=== PATIENT | male | born 1945 | race Caucasian/White ===

== ENCOUNTER 2017-02-20 17:47 | Emergency (ER) | payer MEDICARE, OTHER ==
[2017-02-20] MEDS ORDERED: SODIUM CHLORIDE 0.9% 1,000 ML IV STA (18:03)
[2017-02-20 18:48] LABS: Basophils % (A) 0 %; Eosinophils % (A) 0 %; HCT 52.3 % (39.0-53.0); HGB 18.1 gm/dL (13.0-17.5); Lymphocytes # (A) 0.9 k/uL (1.0-4.8); Lymphocytes % (A) 7 %; MCH 30.3 pg (25.0-35.0); MCHC 34.5 g/dL (31.0-37.0); MCV 87.7 fL (80.0-100.0); Mean Platelet Volume 8.1; Monocytes # (A) 0.5 k/uL (0-1.0); Monocytes % (A) 4 %; Neutrophils # (A) 10.9 k/uL (1.3-7.7); Neutrophils % (A) 87 %; Platelet Count 224 k/uL (150-450); RBC 5.97 m/uL (4.30-5.90); RDW 13.9 % (11.5-15.5); WBC 12.5 k/uL (3.8-10.6)
[2017-02-20 18:50] LABS: Appearance,Urine Clear (Clear); Bilirubin,Urine Negative (Negative); Blood,Urine Small (Negative); Color,Urine Yellow; Glucose,Urine (UA) 3+ (Negative); Ketones,Urine 1+ (Negative); Leukocyte Esterase,Urine Negative (Negative); Mucus,Urine Occasional /hpf; Nitrite,Urine Negative (Negative); Protein,Urine 1+ (Negative); RBC,Urine 5 /hpf (0-5); Specific Gravity,Urine 1.016 (1.001-1.035); Urobilinogen,Urine <2.0 mg/dL (<2.0); WBC,Urine 1 /hpf (0-5)
[2017-02-20 18:52] LABS: INR 3.6 (<1.2); Partial Thromboplastin Time 34.6 sec (22.0-30.0)
[2017-02-20 18:56] LABS: ALT 36 U/L (21-72); AST 31 U/L (17-59); Albumin 4.6 g/dL (3.5-5.0); Alkaline Phosphatase 92 U/L (38-126); Anion Gap 12 mmol/L; Blood Urea Nitrogen 14 mg/dL (9-20); Calcium 9.3 mg/dL (8.4-10.2); Carbon Dioxide 24 mmol/L (22-30); Chloride 97 mmol/L (98-107); Glucose 125 mg/dL (74-99); Magnesium 1.8 mg/dL (1.6-2.3); Potassium 4.1 mmol/L (3.5-5.1); Sodium 133 mmol/L (137-145); Total Bilirubin 1.1 mg/dL (0.2-1.3); Total Protein 7.2 g/dL (6.3-8.2)
--- NOTE | 2017-02-20 19:16 | CT ---
EXAMINATION: CT brain wo con DATE AND TIME: 02/20/2017 7:01 PM ORDERING PROVIDER: Eliel Jacob DO CLINICAL INDICATION: weakness TECHNIQUE: Standard departmental protocol. COMPARISON: None. DESCRIPTION: The calvarium is intact. There is no intracranial hemorrhage. There is no mass or mass e ffect. There is no definite new attenuation defect. Remainder of the intra-axial and extra-axial comp artment examination is unremarkable. The paranasal sinuses, middle ear cavities, and mastoid sinus ai r cells are clear. The orbits are intact. IMPRESSION: NO ACUTE PROCESS.
--- NOTE | 2017-02-20 19:16 | ED ---
General Adult HPI - General Chief complaint: Dizziness Stated complaint: DIZZINESS Time Seen by Provider: 02/20/17 18:03 Source: patient, RN notes reviewed, old records reviewed Mode of arrival: wheelchair Limitations: no limitations - History of Present Illness Initial comments: This is a 71-year-old male to the ER for evaluation today. Patient's presenting for evaluation regarding to dizziness. Dizziness began last night while watching TV, he feels like his disequilibrium. Patient has history of atrial fibrillation history of breast prostate cancer. Patient denies chest pain headache shortness of breath or abdominal pain. Patient also has some dizziness when changing position or walking. Lowmichele states he does not feel like he is going to lose his balance and fall - Related Data Home Medications Medication Instructions Recorded Confirmed Losartan Potassium [Cozaar] 12.5 mg PO DAILY@139902/20/17 02/20/17 Metoprolol Succinate (ER) [Toprol 25 mg PO DAILY 02/20/17 02/20/17 Xl] Warfarin [Coumadin] 5 mg PO MOTUWETHFRSA@139902/20/17 02/20/17 Warfarin [Coumadin] 10 mg PO RAINES@139902/20/17 02/20/17 Allergies Allergy/AdvReac Type Severity Reaction Status Date / Time No Known Allergies Allergy Verified 02/20/17 18:43 Review of Systems ROS Statement: Those systems with pertinent positive or pertinent negative responses have been documented in the HPI. ROS Other: All systems not noted in ROS Statement are negative. Past Medical History Past Medical History: Atrial Fibrillation, Cancer, Prostate Disorder Additional Past Medical History / Comment(s): prostate cancer History of Any Multi-Drug Resistant Organisms: None Reported Additional Past Surgical History / Comment(s): cataracts Past Psychological History: No Psychological Hx Reported Smoking Status: Never smoker Past Alcohol Use History: Occasional Past Drug Use History: None Reported General Exam - General Exam Comments Initial Comments: No ataxia, or cerebellar testing finger-nose and heel umanzor are negative Limitations: no limitations General appearance: alert, in no apparent distress Head exam: Present: atraumatic, normocephalic, normal inspection Eye exam: Present: normal appearance, PERRL, EOMI, nystagmus (Left). Absent: scleral icterus, conjunctival injection, periorbital swelling ENT exam: Present: normal exam, mucous membranes moist Neck exam: Present: normal inspection. Absent: tenderness, meningismus, lymphadenopathy Respiratory exam: Present: normal lung sounds bilaterally. Absent: respiratory distress, wheezes, rales, rhonchi, stridor Cardiovascular Exam: Present: regular rate, normal rhythm, normal heart sounds. Absent: systolic murmur, diastolic murmur, rubs, gallop, clicks GI/Abdominal exam: Present: soft, normal bowel sounds. Absent: distended, tenderness, guarding, rebound, rigid Extremities exam: Present: normal inspection, full ROM, normal capillary refill. Absent: tenderness, pedal edema, joint swelling, calf tenderness Back exam: Present: normal inspection Neurological exam: Present: alert, oriented X3, CN II-XII intact Psychiatric exam: Present: normal affect, normal mood Skin exam: Present: warm, dry, intact, normal color. Absent: rash Course Vital Signs 02/20/17 17:53 Temperature 98.1 F Pulse Rate 101 H Respiratory 20 Rate Blood Pressure 172/104 O2 Sat by Pulse 99 Oximetry - Reevaluation(s) Reevaluation #1: 02/20/17 19:27 Patient able to stand up, ambulate without difficulty EKG Findings - EKG Comments: EKG Findings:: EKG shows A. fib rate of 111, QRS 86, QTc 451 Medical Decision Making - Medical Decision Making 71 male the ER for evaluation of dizziness. Occasional, resolved. Able to ambulate CT brain is negative patient can be discharged home - Lab Data Result diagrams: 02/20/17 18:25 02/20/17 18:25 Lab Results 02/20/17 02/20/17 02/20/17 Range/Units 18:25 18:25 18:25 WBC 12.5 H (3.8-10.6) k/uL RBC 5.97 H (4.30-5.90) m/uL Hgb 18.1 H (13.0-17.5) gm/dL Hct 52.3 (39.0-53.0) % MCV 87.7 (80.0-100.0) fL MCH 30.3 (25.0-35.0) pg MCHC 34.5 (31.0-37.0) g/dL RDW 13.9 (11.5-15.5) % Plt Count 224 (150-450) k/uL Neutrophils % 87 % Lymphocytes % 7 % Monocytes % 4 % Eosinophils % 0 % Basophils % 0 % Neutrophils # 10.9 H (1.3-7.7) k/uL Lymphocytes # 0.9 L (1.0-4.8) k/uL Monocytes # 0.5 (0-1.0) k/uL Eosinophils # 0.0 (0-0.7) k/uL Basophils # 0.0 (0-0.2) k/uL PT (9.0-12.0) sec INR (<1.2) APTT (22.0-30.0) sec Sodium 133 L (137-145) mmol/L Potassium 4.1 (3.5-5.1) mmol/L Chloride 97 L (98-107) mmol/L Carbon Dioxide 24 (22-30) mmol/L Anion Gap 12 mmol/L BUN 14 (9-20) mg/dL Creatinine 0.78 (0.66-1.25) mg/dL Est GFR (MDRD) Af Amer >60 (>60 ml/min/1.73 sqM) Est GFR (MDRD) Non-Af >60 (>60 ml/min/1.73 sqM) Glucose 125 H (74-99) mg/dL Calcium 9.3 (8.4-10.2) mg/dL Phosphorus 3.0 (2.5-4.5) mg/dL Magnesium 1.8 (1.6-2.3) mg/dL Total Bilirubin 1.1 (0.2-1.3) mg/dL AST 31 (17-59) U/L ALT 36 (21-72) U/L Alkaline Phosphatase 92 (38-126) U/L Total Creatine Kinase 107 (55-170) U/L CK-MB (CK-2) 2.7 H* (0.0-2.4) ng/mL CK-MB (CK-2) Rel Index 2.5 Troponin I 0.017 (0.000-0.034) ng/mL Total Protein 7.2 (6.3-8.2) g/dL Albumin 4.6 (3.5-5.0) g/dL Urine Color Urine Appearance (Clear) Urine pH (5.0-8.0) Ur Specific [place] (1.001-1.035) Urine Protein (Negative) Urine Glucose (UA) (Negative) Urine Ketones (Negative) Urine Blood (Negative) Urine Nitrite (Negative) Urine Bilirubin (Negative) Urine Urobilinogen (<2.0) mg/dL Ur Leukocyte Esterase (Negative) Urine RBC (0-5) /hpf Urine WBC (0-5) /hpf Urine Mucus (None) /hpf 02/20/17 02/20/17 Range/Units 18:25 18:25 WBC (3.8-10.6) k/uL RBC (4.30-5.90) m/uL Hgb (13.0-17.5) gm/dL Hct (39.0-53.0) % MCV (80.0-100.0) fL MCH (25.0-35.0) pg MCHC (31.0-37.0) g/dL RDW (11.5-15.5) % Plt Count (150-450) k/uL Neutrophils % % Lymphocytes % % Monocytes % % Eosinophils % % Basophils % % Neutrophils # (1.3-7.7) k/uL Lymphocytes # (1.0-4.8) k/uL Monocytes # (0-1.0) k/uL Eosinophils # (0-0.7) k/uL Basophils # (0-0.2) k/uL PT 32.0 H (9.0-12.0) sec INR 3.6 H (<1.2) APTT 34.6 H (22.0-30.0) sec Sodium (137-145) mmol/L Potassium (3.5-5.1) mmol/L Chloride (98-107) mmol/L Carbon Dioxide (22-30) mmol/L Anion Gap mmol/L BUN (9-20) mg/dL Creatinine (0.66-1.25) mg/dL Est GFR (MDRD) Af Amer (>60 ml/min/1.73 sqM) Est GFR (MDRD) Non-Af (>60 ml/min/1.73 sqM) Glucose (74-99) mg/dL Calcium (8.4-10.2) mg/dL Phosphorus (2.5-4.5) mg/dL Magnesium (1.6-2.3) mg/dL Total Bilirubin (0.2-1.3) mg/dL AST (17-59) U/L ALT (21-72) U/L Alkaline Phosphatase (38-126) U/L Total Creatine Kinase (55-170) U/L CK-MB (CK-2) (0.0-2.4) ng/mL CK-MB (CK-2) Rel Index Troponin I (0.000-0.034) ng/mL Total Protein (6.3-8.2) g/dL Albumin (3.5-5.0) g/dL Urine Color Yellow Urine Appearance Clear (Clear) Urine pH 6.0 (5.0-8.0) Ur Specific [place] 1.016 (1.001-1.035) Urine Protein 1+ H (Negative) Urine Glucose (UA) 3+ H (Negative) Urine Ketones 1+ H (Negative) Urine Blood Small H (Negative) Urine Nitrite Negative (Negative) Urine Bilirubin Negative (Negative) Urine Urobilinogen <2.0 (<2.0) mg/dL Ur Leukocyte Esterase Negative (Negative) Urine RBC 5 (0-5) /hpf Urine WBC 1 (0-5) /hpf Urine Mucus Occasional H (None) /hpf - Radiology Data Radiology results: report reviewed (CT brain is negative for acute disease), image reviewed Disposition Clinical Impression: Benign paroxysmal positional vertigo Disposition: HOME SELF-CARE Condition: Good Instructions: Vertigo (ED) Referrals: Kyara Canada MD [Primary Care Provider] - 1-2 days
[2017-02-20 19:19] LABS: Troponin I 0.017 ng/mL (0.000-0.034)
[2017-02-20 19:20] LABS: Creatine Kinase MB 2.7 ng/mL (0.0-2.4)
[2017-02-20 19:40] VITALS: BP 174/98; PULSE 94; RESP 18; TEMP 98.3
== END 2017-02-20 19:39 | disposition home or self-care (01) ==
LOC: EC 17:47
DX: H81.10 Benign paroxysmal vertigo, unspecified ear (principal); I48.91 Unspecified atrial fibrillation; Z85.46 Personal history of malignant neoplasm of prostate; Z79.899 Other long term (current) drug therapy
CPT/HCPCS: 36415; 70450; 80053; 81001; 82550; 82553; 83735; 84100; 84484; 85025; 85610; 85730; 87086; 93005; 96360; 99284

== ENCOUNTER → 2018-05-08 | Outpatient (CLI) | payer MEDICARE, OTHER ==
--- NOTE | 2018-05-08 14:52 | CONS ---
CONSULTATION DATE OF SERVICE: 05/08/2018. A 73-year-old gentleman has been evaluated in Sleep Center for possible obstructive sleep apnea-hypopnea syndrome. HISTORY OF PRESENT ILLNESS/SLEEP-WAKE EVALUATION: Patient's usual sleep schedule from 8:30 - 9 p.m. until 4 am. Usually no problems with falling asleep. No TV in bedroom. He sleeps by himself on the side position, usually and wakes up from sleep around 4 times with nocturia. He may take naps at 3 to 4 p,m. [place] Sleepiness Scale is 4. No history of hypnagogic hallucinations, sleep paralysis or cataplexy. PAST MEDICAL HISTORY: Positive for atrial fibrillation, hypertension, prostate CA, and BPH. PAST SURGICAL HISTORY: Left eye cataract surgery. SOCIAL HISTORY: Negative for smoking, alcohol consumption occasional. MEDICATIONS: Lopressor, Coumadin, losartan. FAMILY HISTORY: Heart problems, stroke. REVIEW OF SYSTEMS: Multiple awakenings from sleep, naps afternoon. PHYSICAL EXAM: gentleman without distress. BP 148/94, HR 90, RR 16, height 5 foot 7-1/2 inches, weight 191 pounds. Body mass index 29.4, temperature 98.4, oxygen saturation at room air 98%. OROPHARYNX: Extremely low position of soft palate. Mallampati IV. Neck 16 inches in circumference. HEART: S1, S2, irregular. Neck Supple, no JVD. Thyroid is not palpable. LUNGS Clear to percussion and to auscultation. Good air exchange. No wheezing or rhonchi. ABDOMEN Soft and nontender. Bowel sounds are present. No organomegaly appreciated. EXTREMITIES No clubbing or cyanosis. TRANSPORTATION WORKER Awake, alert, and oriented X3. Cranial nerves 2 to 7 intact. There is no fasciculation or atrophy. noted. No focal deficits observed. IMPRESSION: 1. Multiple awakenings from sleep with nocturia, extremely low position of soft palate, wide neck, obstructive sleep apnea-hypopnea syndrome. 2. Overweight, borderline to obesity, body mass index 29.4. 3. Atrial fibrillation. 4. Hypertension. 5. Prostate CA. 6. History of benign prostatic hypertrophy. 7. Status post surgery for cataracts on the left eye. PLAN: 1. Polysomnography for evaluation of patient's breathing during sleep. 2. CPAP/BiPAP titration if sleep study confirms obstructive sleep apnea-hypopnea syndrome. 3. Preferable position during sleep on the side. 4. No driving if patient feels any sleepiness. 5. I will see patient for follow up visit to explain results of testing and following plan. Thank you very much for referring this patient for consultation. Sincerely, Dwain Gibbons MD, PhD, FAASM Diplomat of [place] [employer] [place] [employer] [facility] Dwain Gibbons MD, PhD, FAASM Diplomat of [place] [employer] [place] [employer] [facility] MMODL / IJN: [id number] /
== END | disposition home or self-care (01) ==
LOC: SLEEP 13:18
PROVIDERS: ATTEND Internal Medicine
DX: G47.33 Obstructive sleep apnea (adult) (pediatric) (principal); E66.3 Overweight; I48.91 Unspecified atrial fibrillation; I10 Essential (primary) hypertension; C61 Malignant neoplasm of prostate; Z87.448 Personal history of other diseases of urinary system; Z68.29 Body mass index [BMI] 29.0-29.9, adult; Z98.42 Cataract extraction status, left eye; Z79.01 Long term (current) use of anticoagulants; Z79.899 Other long term (current) drug therapy
CPT/HCPCS: 99211

== ENCOUNTER → 2018-08-07 | Outpatient (CLI) | payer MEDICARE, OTHER ==
--- NOTE | 2018-08-07 11:32 | SFUN ---
SLEEP CENTER FOLLOW UP NOTE DATE OF SERVICE: 08/07/2018 This 73-year-old gentleman has been followed in sleep center for treatment of obstructive sleep apnea-hypopnea syndrome. Recently patient had diagnostic polysomnogram and CPAP titration and I discussed results of sleep studies with patient in detail. Patient was diagnosed with obstructive sleep apnea and subsequently received a CPAP unit, started to use it and he was able to use it every night for the whole night. There is a possibility that small connector between mask and tube was lost and could be the reason for leak from the system according to patient opinion. [place] Sleepiness Scale today is 2, which is totally normal. I checked patient's CPAP unit, CPAP pressure is 9 cm of water. Usage is 30 out of 30 nights more than 4 hours with average usage is 7.1 hours. Leak is 35 L/minute. Apnea- hypopnea index only 0.4, which is absolutely perfect. MEDICATIONS: Lopressor, Coumadin, losartan. PHYSICAL EXAMINATION: During physical exam, patient in no distress. VITAL SIGNS: BP 157/101 on right arm and 159/102 on the left, HR 78, RR 16, weight 192, temp 98.1, oxygen saturation at room air 98%. HEENT: PERRLA, EOMI. Oropharynx low position of soft palate NECK: Supple, no JVD. Thyroid is not palpable. LUNGS: Clear to percussion and to auscultation. Good air exchange. No wheezing or rhonchi. HEART: S1, S2 regular. No murmurs, gallops, or rubs. ABDOMEN: Soft and nontender. Bowel sounds are present. No organomegaly appreciated. EXTREMITIES: No clubbing or cyanosis. COUNTY DIRECTOR WELFARE: Awake, alert, and oriented X3. Cranial nerves 2 to 7 intact. There is no fasciculation or atrophy. noted. No focal deficits observed. IMPRESSION: 1. Obstructive sleep apnea-hypopnea syndrome; apnea-hypopnea index 10.6. Patient demonstrated 100% compliance with treatment. Full normalization of respiration on CPAP, benefitting from treatment. 2. History of atrial fibrillation. 3. Hypertension. 4. History of prostate cancer. 5. History of benign prostatic hypertrophy. 6. Status post surgery for cataract on the left eye. PLAN: 1. Patient will continue to use CPAP equipment every night for the whole night. 2. Prescription for replacement of connector. 3. Watching weight. 4. Sleep hygiene with regular time in bed for at least 8 hours. 5. No driving if feeling any sleepiness. 6. We will maintain all necessary prescriptions for CPAP supplies including mask, tube, filters. Thank you very much for allowing me to participate in management of your patient. Sincerely, Dwain Gibbons MD, PhD, FAASM Diplomat of [place] [employer] [place] [employer] Smoking Tobacco Packing Machine Hand [facility] [place] MMODL / YEN: [id number] /
== END | disposition home or self-care (01) ==
LOC: SLEEP 09:44
PROVIDERS: ATTEND Internal Medicine
DX: G47.33 Obstructive sleep apnea (adult) (pediatric) (principal); I10 Essential (primary) hypertension; Z86.79 Personal history of other diseases of the circulatory system; Z85.46 Personal history of malignant neoplasm of prostate; Z87.438 Personal history of other diseases of male genital organs; Z99.89 Dependence on other enabling machines and devices; Z98.42 Cataract extraction status, left eye; Z79.01 Long term (current) use of anticoagulants; Z79.899 Other long term (current) drug therapy

== ENCOUNTER → 2020-03-02 | Outpatient (CLI) | payer MEDICARE, OTHER ==
--- NOTE | 2020-03-02 12:06 | SFUN ---
SLEEP CENTER FOLLOW UP NOTE DATE OF SERVICE: 03/02/2020 This 74-year-old gentleman who has been followed in Sleep Center for treatment of obstructive sleep apnea-hypopnea syndrome. I did not see patient for about 1-1/2 years. He was supposed to come early, but because of COVID appointment was not done. He continued to use CPAP equipment every night for the whole night, sometimes feel that there is a leak from the mask. The patient is still has sometimes awakenings from sleep with nocturia. [place] Sleepiness Scale today is 3, which is normal. I checked his CPAP unit. CPAP pressure of 9 cm of water. Usage is 30 out of 30 nights for more than 4 hours. Average usage is 6.6 hours, which is great compliance. Leak is 38 L/minute, which is high, but apnea-hypopnea index is totally normal only 0.6. MEDICATIONS: Lopressor 12.5 mg once daily, Coumadin 5 mg once daily, rosuvastatin 10 mg once daily, losartan 50 mg once daily. PHYSICAL EXAMINATION: GENERAL: Patient in no distress. VITAL SIGNS: BP 178/99, HR 97, RR 15, height 5 feet 7-3/4 inches, weight 193.8, temperature 98.5, oxygen saturation at room air 99%. HEENT: PERRLA, EOMI. Oropharynx low position of soft palate. NECK: Supple, no JVD. Thyroid is not palpable. LUNGS: Clear to percussion and to auscultation. Good air exchange. No wheezing or rhonchi. HEART: S1, S2. Irregular. ABDOMEN: Soft, nontender. EXTREMITIES: No clubbing or cyanosis. SLEEVE BOTTOM FELLER: Awake, alert, and oriented X3. Cranial nerves 2 to 7 intact. There is no fasciculation or atrophy. noted. No focal deficits observed. IMPRESSION: 1. Obstructive sleep apnea-hypopnea syndrome. Patient demonstrated 100% compliance with treatment benefitting from treatment. 2. Atrial fibrillation. 3. Hypertension. 4. History of prostate cancer. 5. History of benign prostatic hypertrophy. 6. Status post cataract surgery on left eye. PLAN: 1. Patient will continue to use PAP equipment every night for the whole night. 2. Sleep hygiene with regular time in bed for at least 7-1/2 to 8 hours. 3. Precautions related to driving. No driving if feeling sleepiness. 4. I will maintain all necessary prescription for PAP supplies including mask, tube, filters. 5. Watching weight. 6. No driving if feeling sleepiness. 7. Follow-up visit in 6 months or earlier if patient has any problems. 8. I discussed with the patient about usage a mask not put it too tight on the face. If necessary, replace mask to a different. 9. Also, if patient will continue awakenings from sleep, we may consider to repeat CPAP titration, although by reading from the machine again apnea hypopnea index was normal. Thank you very much for allowing me to participate in management of your patient. Sincerely, Dwain Gibbons MD, PhD, FAASM Diplomat of [place] [employer] [place] [employer] Certified Hyperbaric Technologist of [facility] [place] MMODL / YEN: [id number] /
== END | disposition home or self-care (01) ==
LOC: SLEEP 10:02
PROVIDERS: ATTEND Internal Medicine
DX: G47.33 Obstructive sleep apnea (adult) (pediatric) (principal); I48.91 Unspecified atrial fibrillation; I10 Essential (primary) hypertension; Z85.46 Personal history of malignant neoplasm of prostate; Z99.89 Dependence on other enabling machines and devices; Z79.899 Other long term (current) drug therapy; Z79.01 Long term (current) use of anticoagulants; Z87.438 Personal history of other diseases of male genital organs; Z98.42 Cataract extraction status, left eye

== ENCOUNTER 2023-05-18 15:22 | Emergency (ER) | payer MEDICARE, OTHER ==
[2023-05-18 15:51] VITALS: TEMP 98.3
--- NOTE | 2023-05-18 16:02 | ED ---
Male Urogenital HPI - General Chief complaint: Urogenital Stated complaint: Retention of urine Time Seen by Provider: 05/18/23 15:36 Source: patient, RN notes reviewed, old records reviewed Mode of arrival: ambulatory Limitations: no limitations - History of Present Illness Initial comments: This is a 78-year-old male who presents today for evaluation of inability urinate with severe abdominal pain. Patient states he has a history of enlarged prostate with possibly prostate cancer no treatment. Patient has no recent fevers or difficulty with blood in his urine. But he states today he had some severe pain that is increased since this morning and with inability urinate. No other complaints MD Complaint: other (Severe abdominal pain) -: hour(s) Location: abdomen Radiation: none Severity: severe Severity scale (1-10): 9 Quality: sharp Consistency: constant Improves with: none Worsens with: none indwelling catheter Reports: denies other symptoms - Related Data Home Medications Medication Instructions Recorded Confirmed Losartan Potassium [Cozaar] 12.5 mg PO DAILY@1400 02/20/17 02/20/17 Metoprolol Succinate (ER) [Toprol 25 mg PO DAILY 02/20/17 02/20/17 Xl] Warfarin [Coumadin] 5 mg PO MOTUWETHFRSA@139902/20/17 02/20/17 Warfarin [Coumadin] 10 mg PO RAINES@139902/20/17 02/20/17 Previous Rx's Medication Instructions Recorded Cephalexin [Keflex] 500 mg PO Q8HR #21 cap 05/18/23 Allergies Allergy/AdvReac Type Severity Reaction Status Date / Time No Known Allergies Allergy Verified 05/18/23 15:36 Review of Systems ROS Statement: Those systems with pertinent positive or pertinent negative responses have been documented in the HPI. ROS Other: All systems not noted in ROS Statement are negative. Past Medical History Past Medical History: Atrial Fibrillation, Cancer, Prostate Disorder Additional Past Medical History / Comment(s): prostate cancer History of Any Multi-Drug Resistant Organisms: None Reported Additional Past Surgical History / Comment(s): cataracts Past Psychological History: No Psychological Hx Reported Smoking Status: Never smoker Past Alcohol Use History: Occasional Past Drug Use History: None Reported General Exam Limitations: no limitations General appearance: alert, in no apparent distress Head exam: Present: atraumatic, normocephalic, normal inspection Eye exam: Present: normal appearance, PERRL, EOMI. Absent: scleral icterus, conjunctival injection, periorbital swelling ENT exam: Present: normal exam, mucous membranes moist Neck exam: Present: normal inspection. Absent: tenderness, meningismus, lymphadenopathy Respiratory exam: Present: normal lung sounds bilaterally. Absent: respiratory distress, wheezes, rales, rhonchi, stridor Cardiovascular Exam: Present: regular rate, normal rhythm, normal heart sounds. Absent: systolic murmur, diastolic murmur, rubs, gallop, clicks GI/Abdominal exam: Present: soft, normal bowel sounds. Absent: distended, tenderness, guarding, rebound, rigid Extremities exam: Present: normal inspection, full ROM, normal capillary refill. Absent: tenderness, pedal edema, joint swelling, calf tenderness Back exam: Present: normal inspection Neurological exam: Present: alert, oriented X3, CN II-XII intact Psychiatric exam: Present: normal affect, normal mood Skin exam: Present: warm, dry, intact, normal color. Absent: rash Course Vital Signs 05/18/23 05/18/23 15:33 17:23 Temperature 98.3 F Pulse Rate 108 H 80 Respiratory 20 18 Rate Blood Pressure 187/105 132/78 O2 Sat by Pulse 97 98 Oximetry - Reevaluation(s) Reevaluation #1: 05/18/23 17:13 Medical records reviewed Reevaluation #2: 05/18/23 17:13 Patient symptoms dramatically improved after Balbuena catheter placement Reevaluation #3: 05/18/23 17:13 Patient informed of results questions answered Reevaluation #4: Was pt. sent in by a medical professional or institution (, PA, COST ESTIMATOR, urgent care, hospital, or half-way...) When possible be specific @ -no Did you speak to anyone other than the patient for history (EMS, parent, family, police, friend...)? What history was obtained from this source @ -no Did you review nursing and triage notes (agree or disagree)? Why? @ -agree Are old charts reviewed (outside hosp., previous admission, EMS record, old EKG, old radiological studies, urgent care reports/EKG's, half-way records)? Report findings @ -yes Differential Diagnosis (chest pain, altered mental status, abdominal pain women, abdominal pain men, vaginal bleeding, weakness, fever, dyspnea, syncope, headache, dizziness, GI bleed, back pain, seizure, CVA, palpatations, mental health, musculoskeletal)? @ -prior EKG interpreted by me (3pts min.). @ -no X-rays interpreted by me (1pt min.). @ -no CT interpreted by me (1pt min.). @ -no U/S interpreted by me (1pt. min.). @ -no What testing was considered but not performed or refused? (CT, X-rays, U/S, labs)? Why? @ -none What meds were considered but not given or refused? Why? @ -none Did you discuss the management of the patient with other professionals (professionals i.e. DrLokesh, PA, COST ESTIMATOR, lab, RT, psych nurse, criminal justice social worker, law firm administrator, teacher, service officer, case assembler)? Give summary @ -no Was smoking cessation discussed for >3mins.? @ -no Was critical care preformed (if so, how long)? @ -no Were there social determinants of health that impacted care today? How? (Homelessness, low income, unemployed, alcoholism, drug addiction, transportation, low edu. Level, literacy, decrease access to med. care, care home, rehab)? @ -none Was there de-escalation of care discussed even if they declined (Discuss DNR or withdrawal of care, Hospice)? DNR status @ -no What co-morbidities impacted this encounter? (DM, HTN, Smoking, COPD, CAD, Cancer, CVA, ARF, Chemo, Hep., AIDS, mental health diagnosis, sleep apnea, mo rbid obesity)? @ -none Was patient admitted / discharged? Hospital course, mention meds given and route, prescriptions, significant lab abnormalities, going to OR and other pertinent info. @ - 78 male with urinary retention does follow-up with urology will see Dr. Bar on an outpatient basis. Patient has Balbuena catheter placed will be discharged with catheter in place and placed on antibiotics Discharge Undiagnosed new problem with uncertain prognosis? @ -no Drug Therapy requiring intensive monitoring for toxicity (Heparin, Nitro, Insulin, Cardizem)? @ -no Were any procedures done? @ -no Diagnosis/symptom? @ - Acute, or Chronic, or Acute on Chronic? @ -Acute Uncomplicated (without systemic symptoms) or Complicated (systemic symptoms)? @ -Complicated Side effects of treatment? @ -no Exacerbation, Progression, or Severe Exacerbation? @ -exacerbation Poses a threat to life or bodily function? How? (Chest pain, [place], [place], pneumonia, PE, COPD, DKA, ARF, appy, cholecystitis, CVA, Diverticulitis, Homicidal, Suicidal, threat to staff... and all critical care pts) @ -yes extremes of age urinary retention Procedures - Catheter Insertion (Urinary) Indications: to alleviate urinary retention Prophylactic Antibiotics Given: No Bladder Scan/US before Catheterization: No Preparation: Povidone-Iodine Type of Catheter Inserted: Balbuena Results: successfully catheterized-immediate flow Patient Tolerated Procedure: well Complications: none Medical Decision Making - Medical Decision Making 78 male with urinary retention does follow-up with urology will see Dr. Bar on an outpatient basis. Patient has Balbuena catheter placed will be discharged with catheter in place and placed on antibiotics - Lab Data Lab Results 05/18/23 Range/Units 16:01 Urine Color Colorless Urine Appearance Clear (Clear) Urine pH 5.5 (5.0-8.0) Ur Specific [place] 1.008 (1.001-1.035) Urine Protein Negative (Negative) Urine Glucose (UA) Negative (Negative) Urine Ketones Negative (Negative) Urine Blood Moderate H (Negative) Urine Nitrite Negative (Negative) Urine Bilirubin Negative (Negative) Urine Urobilinogen <2.0 (<2.0) mg/dL Ur Leukocyte Esterase Negative (Negative) Urine RBC >182 H (0-5) /hpf Urine WBC 6 H (0-5) /hpf Urine Mucus Rare H (None) /hpf Disposition Clinical Impression: Urinary retention Disposition: HOME SELF-CARE Condition: Good Instructions (If sedation given, give patient instructions): Urinary Retention in Men (ED) Prescriptions: Cephalexin [Keflex] 500 mg PO Q8HR #21 cap Is patient prescribed a controlled substance at d/c from ED?: No Referrals: Alan Mata NPC [REFERRING] - 1-2 days Tino Bar MD [STAFF PHYSICIAN] - 1-2 days Time of Disposition: 17:00
[2023-05-18 16:57] LABS: Appearance,Urine Clear (Clear); Bilirubin,Urine Negative (Negative); Blood,Urine Moderate (Negative); Color,Urine Colorless; Glucose,Urine (UA) Negative (Negative); Ketones,Urine Negative (Negative); Leukocyte Esterase,Urine Negative (Negative); Mucus,Urine Rare /hpf; Nitrite,Urine Negative (Negative); PH, Urine 5.5 (5.0-8.0); Protein,Urine Negative (Negative); RBC,Urine >182 /hpf (0-5); Specific Gravity,Urine 1.008 (1.001-1.035); Urobilinogen,Urine <2.0 mg/dL (<2.0); WBC,Urine 6 /hpf (0-5)
[2023-05-18] MEDS: CEPHALEXIN 500 MG CAP PO STA (17:21)
[2023-05-18] MEDS: CEPHALEXIN 500MG STARTER PACK 4 CAP BTL PO STA (17:21)
[2023-05-18 17:39] VITALS: BP 132/78; PULSE 80; RESP 18
== END 2023-05-18 17:30 | disposition home or self-care (01) ==
LOC: EC 15:22
DX: R33.9 Retention of urine, unspecified (principal)
CPT/HCPCS: 51702; 51798; 81001; 99283; 99284

== ENCOUNTER 2023-06-02 02:55 | Emergency (ER) | payer MEDICARE, OTHER ==
[2023-06-02] MEDS: LIDOCAINE 2% URO-JET JELLY 5 ML KIT URETHRAL ONE (03:36)
--- NOTE | 2023-06-02 03:57 | ED ---
General Adult HPI - General Chief complaint: Urogenital Stated complaint: Urine Retention Time Seen by Provider: 06/02/23 03:32 Source: patient, RN notes reviewed, old records reviewed Mode of arrival: ambulatory Limitations: no limitations - History of Present Illness Initial comments: Patient is a 78-year-old male who presents emergency department for urinary retention. Last urinated approximately 8 to 9 hours ago. Endorses abdominal distention. Has a history of untreated prostate cancer. 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 Had his Balbuena catheter removed on Saturday and saw his urologist. Was urinating fine but started noticing a decrease stream since that time. Denies any nausea or vomiting. Denies any chest pain or shortness of breath. Presents for further evaluation over urinary retention. Did not want to wait as long as he did previously. - Related Data Home Medications Medication Instructions Recorded Confirmed Losartan Potassium [Cozaar] 12.5 mg PO DAILY@1400 02/20/17 02/20/17 Metoprolol Succinate (ER) [Toprol 25 mg PO DAILY 02/20/17 02/20/17 Xl] Warfarin [Coumadin] 5 mg PO MOTUWETHFRSA@1400 02/20/17 02/20/17 Warfarin [Coumadin] 10 mg PO RAINES@1400 02/20/17 02/20/17 Previous Rx's Medication Instructions Recorded Cephalexin [Keflex] 500 mg PO Q8HR #21 cap 05/18/23 Ciprofloxacin HCl [Cipro] 500 mg PO BID 7 Days #14 tab 06/02/23 Allergies Allergy/AdvReac Type Severity Reaction Status Date / Time No Known Allergies Allergy Verified 06/02/23 03:01 Review of Systems ROS Statement: Those systems with pertinent positive or pertinent negative responses have been documented in the HPI. Review of Systems: CONST: Denies fever EYES: Denies blurry vision ENT: Denies nasal congestion C/V: Denies Chest pain RESP: Denies shortness of breath GI: Endorses suprapubic abdominal distention : Endorses decreased urination SKIN: Denies rash. MSK: Denies joint pain. NEURO: Denies headache ROS Other: All systems not noted in ROS Statement are negative. Past Medical History Past Medical History: Atrial Fibrillation, Cancer, Prostate Disorder Additional Past Medical History / Comment(s): prostate cancer History of Any Multi-Drug Resistant Organisms: None Reported Additional Past Surgical History / Comment(s): cataracts Past Psychological History: No Psychological Hx Reported Smoking Status: Never smoker Past Alcohol Use History: Occasional Past Drug Use History: None Reported General Exam - General Exam Comments Initial Comments: General: Appears in no acute distress. HEAD: Normal with no signs of head trauma. EYES: EOMI ENT: Grossly intact RESPIRATORY: No respiratory distress C/V: Regular rate and rhythm. S1 and S2 auscultated. ABD: Suprapubic abdominal distention. No obvious tenderness. No guarding. No rebound tenderness. EXT: No obvious deformity. SKIN: No rashes or lesions observed on exposed skin. NEURO: Alert and oriented x 4. Limitations: no limitations Course Vital Signs 06/02/23 06/02/23 02:59 04:30 Temperature 98.3 F Pulse Rate 91 85 Respiratory 18 18 Rate Blood Pressure 183/100 146/98 O2 Sat by Pulse 100 100 Oximetry Medical Decision Making - Medical Decision Making Was pt. sent in by a medical professional or institution (, PA, TACK MAKER, urgent care, hospital, or assisted...) When possible be specific @ -No Did you speak to anyone other than the patient for history (EMS, parent, family, police, friend...)? What history was obtained from this source @ -No Did you review nursing and triage notes (agree or disagree)? Why? @ -I reviewed and agree with nursing and triage notes Were old charts reviewed (outside hosp., previous admission, EMS record, old EKG, old radiological studies, urgent care reports/EKG's, assisted records)? Report findings @ -Old charts reviewed Differential Diagnosis (chest pain, altered mental status, abdominal pain women, abdominal pain men, vaginal bleeding, weakness, fever, dyspnea, syncope, headache, dizziness, GI bleed, back pain, seizure, CVA, palpatations, mental health, musculoskeletal)? @ -Urinary retention, prostate cancer, UTI. This list is not all inclusive. EKG interpreted by me (3pts min.). @ -None done X-rays interpreted by me (1pt min.). @ -None done CT interpreted by me (1pt min.). @ -None done U/S interpreted by me (1pt. min.). @ -None done What testing was considered but not performed or refused? (CT, X-rays, U/S, labs)? Why? @ -None What meds were considered but not given or refused? Why? @ -None Did you discuss the management of the patient with other professionals (professionals i.e. , PA, TACK MAKER, lab, RT, psych nurse, social worker health services, business lawyer, teacher, public service officer, cyanide case hardener)? Give summary @ -No Was smoking cessation discussed for >3mins.? @ -No Was critical care preformed (if so, how long)? @ -No Were there social determinants of health that impacted care today? How? (Homelessness, low income, unemployed, alcoholism, drug addiction, transportation, low edu. Level, literacy, decrease access to med. care, long-term, rehab)? @ -No Was there de-escalation of care discussed even if they declined (Discuss DNR or withdrawal of care, Hospice)? DNR status @ -No What co-morbidities impacted this encounter? (DM, HTN, Smoking, COPD, CAD, Cancer, CVA, ARF, Chemo, Hep., AIDS, mental health diagnosis, sleep apnea, morbid obesity)? @ -Prostate cancer and urinary retention. Recent Balbuena catheter removal. Was patient admitted / discharged? Hospital course, mention meds given and route, prescriptions, significant lab abnormalities, going to OR and other pertinent info. @ -Patient presents after recent Balbuena catheter removal and now is having urinary retention again. Bladder scan formed by nursing staff reveals over 700 cc of urine. Balbuena catheter was placed. We will send urine for evaluation. Patient in agreement this plan. Vital signs are within acceptable limits. There was a large clot that came out when catheter was initially placed. Likely the source of the occlusion.Urinalysis remarkable for hematuria but no other findings of infection. Had a total of over 700 cc of urine out. On reevaluation, patient's urine which was initially bloody is now clear. Discussed results with the patient. We will keep the Balbuena catheter in place and place him with a leg bag. I recommended follow-up with Dr. Bar his urologist. He was in agreement this plan. I will empirically place him on ciprofloxacin until follow-up. He will receive a dose prior to discharge. He is already on Flomax and has approximately 3 weeks of tablets at home. Recommended close follow-up with urology in the next week. He was in agreement this plan. Strict return precautions discussed. I will provide the patient with a prescription for ciprofloxacin. I instructed the patient to follow up with their PCP in the next 1-3 days.. I explained that the patient should return to the emergency department if they experience any worsening symptoms. Strict return precautions were discussed with the patient. The patient expressed understanding of these instructions. I answered all questions that the patient had. The patient was discharged home in good condition with their prescriptions and follow up information. Undiagnosed new problem with uncertain prognosis? @ -No Drug Therapy requiring intensive monitoring for toxicity (Heparin, Nitro, Insulin, Cardizem)? @ -No Were any procedures done? @ -No Diagnosis/symptom? @ -Urinary retention, Balbuena catheter placement Acute, or Chronic, or Acute on Chronic? @ -Acute Uncomplicated (without systemic symptoms) or Complicated (systemic symptoms)? @ -Complicated Side effects of treatment? @ -No Exacerbation, Progression, or Severe Exacerbation? @ -No Poses a threat to life or bodily function? How? (Chest pain, [place], [place], pneumonia, PE, COPD, DKA, ARF, appy, cholecystitis, CVA, Diverticulitis, Homicidal, Suicidal, threat to staff... and all critical care pts) @ -Unlikely - Lab Data Lab Results 06/02/23 Range/Units 03:39 Urine Color Light Yellow Urine Appearance Clear (Clear) Urine pH 6.0 (5.0-8.0) Ur Specific [place] 1.007 (1.001-1.035) Urine Protein Trace H (Negative) Urine Glucose (UA) Negative (Negative) Urine Ketones Negative (Negative) Urine Blood Large H (Negative) Urine Nitrite Negative (Negative) Urine Bilirubin Negative (Negative) Urine Urobilinogen <2.0 (<2.0) mg/dL Ur Leukocyte Esterase Negative (Negative) Urine RBC >182 H (0-5) /hpf Urine WBC 4 (0-5) /hpf Urine Bacteria Occasional H (None) /hpf Urine Mucus Rare H (None) /hpf Disposition Clinical Impression: Urinary retention, Balbuena catheter in place Disposition: HOME SELF-CARE Condition: Good Instructions (If sedation given, give patient instructions): Urinary Retention in Men (ED) Prescriptions: Ciprofloxacin HCl [Cipro] 500 mg PO BID 7 Days #14 tab Is patient prescribed a controlled substance at d/c from ED?: No Referrals: Kyara Canada MD [Primary Care Provider] - 1-2 days Tino Bar MD [STAFF PHYSICIAN] - 1-2 days Time of Disposition: 04:57
[2023-06-02 04:16] VITALS: RESP 18
[2023-06-02 04:30] LABS: Appearance,Urine Clear (Clear); Bacteria,Urine Occasional /hpf; Bilirubin,Urine Negative (Negative); Blood,Urine Large (Negative); Color,Urine Light Yellow; Glucose,Urine (UA) Negative (Negative); Ketones,Urine Negative (Negative); Leukocyte Esterase,Urine Negative (Negative); Mucus,Urine Rare /hpf; Nitrite,Urine Negative (Negative); Protein,Urine Trace (Negative); RBC,Urine >182 /hpf (0-5); Specific Gravity,Urine 1.007 (1.001-1.035); Urobilinogen,Urine <2.0 mg/dL (<2.0); WBC,Urine 4 /hpf (0-5)
[2023-06-02] MEDS: CIPROFLOXACIN HCL 500 MG TAB PO STA ×2 (05:07→08:27)
[2023-06-02] MEDS: SODIUM CHLORIDE 0.9% 1,000 ML IV STA (06:10)
--- NOTE | 2023-06-02 06:11 | ED ---
Medical Decision Making - Lab Data Result diagrams: 06/02/23 06:15 - EKG Data -: EKG Interpreted by Me <Mik Oliver - Last Filed: 06/02/23 07:13> - Lab Data Result diagrams: 06/02/23 06:15 06/02/23 06:15 <Phill Flores - Last Filed: 06/02/23 08:05> - Medical Decision Making Upon discharge, patient stood up and had a near syncopal episode. Was caught by nursing staff and did not injure himself. States he felt lightheaded when he stood up too quickly. Does endorse not drinking much yesterday because he was not peeing and did not want to retain too much urine. I do suspect possible dehydration. We will send off basic labs as well as obtain screening EKG and supply the patient with a 1 L fluid bolus. Patient was in agreement with this plan. Near-syncope was likely secondary to orthostatic hypotension. Diagnosis/symptom? @ -Near syncope Acute, or Chronic, or Acute on Chronic? @ -Acute Uncomplicated (without systemic symptoms) or Complicated (systemic symptoms)? @ -Complicated Side effects of treatment? @ -None Exacerbation, Progression, or Severe Exacerbation] @ -No Poses a threat to life or bodily function? @ -Unlikely (Mik Oliver) Patient care signed out to me by previous shift physician, Dr. Mik Oliver. Briefly, patient is 78-year-old male presents to the emergency department for urinary retention. Balbuena catheter was placed. Patient was discharged when all of a sudden he had a syncopal episode. Patient evaluated bedside states that he did not pass out completely however lowered himself to the ground along with the nurse. There was no trauma during the event. Labs were ordered by Dr. Oliver and patient was monitored in the emergency department further. Patient evaluated at the bedside at 7:30 AM. He is stable well-appearing with no acute complaints. Urine in the Balbuena catheter reservoir is clear without any signs of bleeding. Patient states he feels well. Labs evaluated. Labs within acceptable limits. Slight degree of hyponatremia with a sodium level 131. Patient told to increase his salt intake and his food. Orthostatic blood pressures are within acceptable limits. Patient ambulated with no complications. Patient feels well and tolerating oral intake. Patient discharged (Phill Flores) - Lab Data Lab Results 06/02/23 06/02/23 06/02/23 Range/Units 03:39 06:12 06:15 WBC 13.8 H (3.8-10.6) k/uL RBC 5.09 (4.30-5.90) m/uL Hgb 15.9 (13.0-17.5) gm/dL Hct 46.8 (39.0-53.0) % MCV 91.9 (80.0-100.0) fL MCH 31.2 (25.0-35.0) pg MCHC 33.9 (31.0-37.0) g/dL RDW 12.1 (11.5-15.5) % Plt Count 301 (150-450) k/uL MPV 7.0 Neutrophils % 88 % Lymphocytes % 7 % Monocytes % 3 % Eosinophils % 1 % Basophils % 1 % Neutrophils # 12.1 H (1.3-7.7) k/uL Lymphocytes # 0.9 L (1.0-4.8) k/uL Monocytes # 0.4 (0-1.0) k/uL Eosinophils # 0.1 (0-0.7) k/uL Basophils # 0.1 (0-0.2) k/uL PT (10.0-12.5) sec INR (<1.2) Sodium (137-145) mmol/L Potassium (3.5-5.1) mmol/L Chloride (98-107) mmol/L Carbon Dioxide (22-30) mmol/L Anion Gap mmol/L BUN (9-20) mg/dL Creatinine (0.66-1.25) mg/dL Est GFR (CKD-EPI)AfAm (>60 ml/min/1.73 sqM) Est GFR (CKD-EPI)NonAf (>60 ml/min/1.73 sqM) Glucose (74-99) mg/dL POC Glucose (mg/dL) 109 (70-110) mg/dL POC Glu Range Master ID Leida Espino Calcium (8.4-10.2) mg/dL Urine Color Light Yellow Urine Appearance Clear (Clear) Urine pH 6.0 (5.0-8.0) Ur Specific [place] 1.007 (1.001-1.035) Urine Protein Trace H (Negative) Urine Glucose (UA) Negative (Negative) Urine Ketones Negative (Negative) Urine Blood Large H (Negative) Urine Nitrite Negative (Negative) Urine Bilirubin Negative (Negative) Urine Urobilinogen <2.0 (<2.0) mg/dL Ur Leukocyte Esterase Negative (Negative) Urine RBC >182 H (0-5) /hpf Urine WBC 4 (0-5) /hpf Urine Bacteria Occasional H (None) /hpf Urine Mucus Rare H (None) /hpf 06/02/23 06/02/23 Range/Units 06:15 06:15 WBC (3.8-10.6) k/uL RBC (4.30-5.90) m/uL Hgb (13.0-17.5) gm/dL Hct (39.0-53.0) % MCV (80.0-100.0) fL MCH (25.0-35.0) pg MCHC (31.0-37.0) g/dL RDW (11.5-15.5) % Plt Count (150-450) k/uL MPV Neutrophils % % Lymphocytes % % Monocytes % % Eosinophils % % Basophils % % Neutrophils # (1.3-7.7) k/uL Lymphocytes # (1.0-4.8) k/uL Monocytes # (0-1.0) k/uL Eosinophils # (0-0.7) k/uL Basophils # (0-0.2) k/uL PT 26.6 H (10.0-12.5) sec INR 2.7 H (<1.2) Sodium 131 L (137-145) mmol/L Potassium 3.7 (3.5-5.1) mmol/L Chloride 100 (98-107) mmol/L Carbon Dioxide 26 (22-30) mmol/L Anion Gap 5 mmol/L BUN 14 (9-20) mg/dL Creatinine 0.70 (0.66-1.25) mg/dL Est GFR (CKD-EPI)AfAm >90 (>60 ml/min/1.73 sqM) Est GFR (CKD-EPI)NonAf >90 (>60 ml/min/1.73 sqM) Glucose 116 H (74-99) mg/dL POC Glucose (mg/dL) (70-110) mg/dL POC Glu Range Master ID Calcium 9.1 (8.4-10.2) mg/dL Urine Color Urine Appearance (Clear) Urine pH (5.0-8.0) Ur Specific [place] (1.001-1.035) Urine Protein (Negative) Urine Glucose (UA) (Negative) Urine Ketones (Negative) Urine Blood (Negative) Urine Nitrite (Negative) Urine Bilirubin (Negative) Urine Urobilinogen (<2.0) mg/dL Ur Leukocyte Esterase (Negative) Urine RBC (0-5) /hpf Urine WBC (0-5) /hpf Urine Bacteria (None) /hpf Urine Mucus (None) /hpf - EKG Data EKG Comments: 12-lead Electrocardiogram Interpretation Note EKG was reviewed and interpreted by myself. 12-lead ECG performed at 0609 is interpreted by me as revealing rate controlled atrial fibrillation at a rate of 65 beats per minute. [place] is normal. QRS duration is 96 ms, QTc is 429 ms.. There were no ST or T wave abnormalities to suggest myocardial ischemia or injury. R wave progression across the precordium was satisfactory. By my interpretation this EKG is non-diagnostic for acute ischemia. (Mik Oliver) Disposition <Mik Oliver - Last Filed: 06/02/23 07:13> Is patient prescribed a controlled substance at d/c from ED?: No <Phill Flores - Last Filed: 06/02/23 08:05> Clinical Impression: Urinary retention, Balbuena catheter in place, Near syncope Disposition: HOME SELF-CARE Instructions (If sedation given, give patient instructions): Urinary Retention in Men (ED) Prescriptions: Ciprofloxacin HCl [Cipro] 500 mg PO BID 7 Days #14 tab Referrals: Kyara Canada MD [Primary Care Provider] - 1-2 days Tino Bar MD [STAFF PHYSICIAN] - 1-2 days
[2023-06-02 06:13] LABS: Glucose,Whole Blood 109 mg/dL (70-110)
[2023-06-02 06:29] LABS: Basophils # (A) 0.1 k/uL (0-0.2); Basophils % (A) 1 %; Eosinophils # (A) 0.1 k/uL (0-0.7); Eosinophils % (A) 1 %; HCT 46.8 % (39.0-53.0); HGB 15.9 gm/dL (13.0-17.5); Lymphocytes # (A) 0.9 k/uL (1.0-4.8); Lymphocytes % (A) 7 %; MCH 31.2 pg (25.0-35.0); MCHC 33.9 g/dL (31.0-37.0); MCV 91.9 fL (80.0-100.0); Monocytes # (A) 0.4 k/uL (0-1.0); Monocytes % (A) 3 %; Neutrophils # (A) 12.1 k/uL (1.3-7.7); Neutrophils % (A) 88 %; Platelet Count 301 k/uL (150-450); RBC 5.09 m/uL (4.30-5.90); RDW 12.1 % (11.5-15.5); WBC 13.8 k/uL (3.8-10.6)
[2023-06-02 06:39] LABS: INR 2.7 (<1.2); Prothrombin Time 26.6 sec (10.0-12.5)
[2023-06-02 06:57] LABS: African American GFR (CKD) >90 (>60 ml/min/1.73 sqM); Anion Gap 5 mmol/L; Blood Urea Nitrogen 14 mg/dL (9-20); Calcium 9.1 mg/dL (8.4-10.2); Carbon Dioxide 26 mmol/L (22-30); Chloride 100 mmol/L (98-107); Glucose 116 mg/dL (74-99); Non-African American GFR(CKD) >90 (>60 ml/min/1.73 sqM); Sodium 131 mmol/L (137-145)
[2023-06-02 07:21] LABS: Potassium 3.7 mmol/L (3.5-5.1)
[2023-06-02 08:27] VITALS: BP 148/90; PULSE 62
[2023-06-02] MEDS: CEPHALEXIN 500 MG CAP PO STA (08:28)
[2023-06-02 09:06] VITALS: TEMP 98.2
== END 2023-06-02 08:28 | disposition home or self-care (01) ==
LOC: EC 02:55
DX: T83.092A Other mechanical complication of nephrostomy catheter, initial encounter (principal)
CPT/HCPCS: 36415; 51702; 51798; 80048; 81001; 85025; 85610; 93005; 96360; 99284

== ENCOUNTER → 2023-06-12 | Outpatient (CLI) | payer MEDICARE, OTHER ==
--- NOTE | 2023-06-13 09:29 | MR ---
EXAMINATION TYPE: MR Prostate wo/w con DATE OF EXAM: 06/12/2023 10:02 AM COMPARISON: None. CLINICAL INDICATION:Male, 78 years old with history of C61 PROSTATE CA; Prostate cancer. TECHNIQUE: Multi-planar, multi-sequence imaging of the pelvis is performed prior to and following the uncomplicated administration of bolus intravenous gadolinium. CONTRAST: 8.5 Gadavist Interpretive Criteria: PI-RADS v2.1 SERUM PSA: 15.3 on 05/15/2023. r SURGICAL PATHOLOGY: No data available. FINDINGS: Prostatic dimensions: 7.6 x 9.2 x 6.5 cm. Ellipsoid Volume:240.55 (PSA density=0.06 ng/mL/mL) CENTRAL GLAND (Central and Transition Zones/CZ+TZ): Multiple bilateral, heterogenous appearing hypertrophic stromal nodules, without suspicious lesion. M edian lobe hypertrophy with protrusion into the base of the bladder. (PI-RADS 2) PERIPHERAL ZONE (PZ): Bilateral linear, indistinct wedgelike areas of low ADC, and low T2 signal, No evidence of masslike a bnormality, or localized perfusional hypervascularity, to further suggest a focus of clinically signi ficant prostate cancer. (PI-RADS 2) SEMINAL VESICLES (SV): Symmetric and unremarkable. PERIPROSTATIC TISSUES: Unremarkable. LYMPH NODES: No enlarged pelvic lymph node. REMAINING PELVIS: Bladder wall is within normal limits given distention. Balbuena catheter with inflated in appropriate po sition. No dilated ureter is partially visualized with trabeculated bladder wall likely due to chroni c bladder outlet obstruction. No abnormal free or organized intrapelvic fluid collection. No pathologic bowel dilation or mural thickening. No hernia visualized OSSEOUS STRUCTURES: No suspicious osseous abnormality. IMPRESSION: 1. No specific features for high-risk prostate cancer. Maximum PI-RADS score: 2. 2. Substantial BPH, estimated gland volume 240.55 mL. 3. No suspicious osseous lesion. No lymphadenopathy. No evidence of prostate adenocarcinoma involving the periprostatic tissues.
== END | disposition home or self-care (01) ==
LOC: RADMRIMAIN 08:34
PROVIDERS: ATTEND Urology
DX: C61 Malignant neoplasm of prostate (principal); N40.0 Benign prostatic hyperplasia without lower urinary tract symptoms
CPT/HCPCS: 72197; A9585